=== PATIENT | male | born 1955 | race Caucasian/White ===

== ENCOUNTER 2021-02-24 08:00 | Outpatient (REF) | payer OTHER, SELFPAY ==
[2021-02-24 09:34] LABS: MANUAL DIFF FLAG NO
[2021-02-24 09:43] LABS: Basophils Percent Auto 0.5 % (0-2); Eosinophils Absolute Auto 0.1 X10*3/uL (0.0-0.4); Eosinophils Percent Auto 2.1 % (0-4); Hemoglobin 15.4 g/dl (14.0-18.0); Imm Gran Abs Auto 0.04 X10*3/uL (0.00-0.03); Imm Gran Pct Auto 0.6 % (0.0-0.4); Lymphocytes Absolute Auto 1.5 X10*3/uL (1.2-4.9); Lymphocytes Percent Auto 24.1 % (20-40); Mean Corpuscular HGB Conc 33.5 g/dl (31.0-36.0); Mean Corpuscular Hemoglobin 32.9 pg (27.0-33.0); Mean Corpuscular Volume 98.3 fL (80-98); Mean Platelet Volume 9.4 fL (9.4-12.4); Monocytes Absolute Auto 0.5 X10*3/uL (0.1-1.2); Monocytes Percent Auto 8.6 % (2-11); Neutrophils Percent Auto 64.1 % (45-73); Platelet Count 191 X10*3/uL (160-400); Red Blood Count 4.68 X10*6/uL (4.60-5.80); Red Cell Distribution Width 11.8 % (11.0-16.0); White Blood Count 6.2 X10*3/uL (4.8-10.8)
[2021-02-24 10:01] LABS: Alanine Aminotransferase 34 U/L (0-40); Albumin Level 4.2 g/dL (3.5-5.0); Alkaline Phosphatase 98 U/L (39-117); Anion Gap 11 (12-20); Aspartate Amino Transferase 26 U/L (5-37); Bilirubin Total 2.3 mg/dL (0.0-1.0); Blood Urea Nitrogen 15 mg/dL (9-16); Calcium 9.1 mg/dL (8.4-10.2); Carbon Dioxide 30 mmol/L (22-29); Chloride 103 mmol/L (96-108); Cholesterol 152 mg/dL; Estimated Glomerular Filt Rate > 60; Glucose Fasting 106 mg/dL (60-99); HDL Cholesterol 58 mg/dL; LDL Cholesterol Calculated 60 mg/dl; Potassium 4.4 mmol/L (3.3-5.1); Sodium 140 mmol/L (135-145); Total Protein 6.6 g/dL (6.5-8.0); Triglycerides 171 mg/dL
== END 2021-02-24 08:01 | disposition home or self-care (01) ==
LOC: HO.LAB 08:00
PROVIDERS: PCP Physician Assistant; Visit Provider Physician Assistant
DX: E78.1 Pure hyperglyceridemia (principal)
CPT/HCPCS: 36415; 80053; 80061; 85025

== ENCOUNTER 2021-09-29 09:27 | Outpatient (REF) | payer OTHER, SELFPAY ==
[2021-09-29 10:14] LABS: Hematocrit 44.2 % (42.0-52.0); Mean Corpuscular HGB Conc 33.9 g/dl (31.0-36.0); Mean Corpuscular Hemoglobin 33.3 pg (27.0-33.0); Mean Corpuscular Volume 98.2 fL (80.0-98.0); Mean Platelet Volume 9.2 fL (9.4-12.4); Platelet Count 171 X10*3/uL (160-400); Red Cell Distribution Width 11.4 % (11.0-16.0)
[2021-09-29 10:42] LABS: Alanine Aminotransferase 24 U/L (0-40); Albumin Level 3.9 g/dL (3.5-5.0); Alkaline Phosphatase 85 U/L (39-117); Anion Gap 10 (12-20); Aspartate Amino Transferase 21 U/L (5-37); Bilirubin Total 1.2 mg/dL (0.0-1.0); Blood Urea Nitrogen 12 mg/dL (9-16); Calcium 8.7 mg/dL (8.4-10.2); Carbon Dioxide 28 mmol/L (22-29); Chloride 105 mmol/L (96-108); Cholesterol 151 mg/dL; Estimated Glomerular Filt Rate > 60; Glucose Fasting 107 mg/dL (60-99); HDL Cholesterol 53 mg/dL; LDL Cholesterol Calculated 71 mg/dl; Potassium 4.1 mmol/L (3.3-5.1); Sodium 139 mmol/L (135-145); Triglycerides 136 mg/dL
[2021-09-29 11:05] LABS: Estimated Average Glucose 105 mg/dL; Hemoglobin A1c % 5.3 %
== END 2021-09-29 09:28 | disposition home or self-care (01) ==
LOC: HO.LAB 09:27
PROVIDERS: PCP Physician Assistant; Visit Provider Physician Assistant
DX: I10 Essential (primary) hypertension (principal); E78.1 Pure hyperglyceridemia; R73.09 Other abnormal glucose
CPT/HCPCS: 36415; 80053; 80061; 83036; 85027

== ENCOUNTER 2022-01-09 08:28 | Outpatient (REF) | payer OTHER, SELFPAY ==
[2022-01-09 09:54] LABS: Hematocrit 44.9 % (42.0-52.0); Mean Corpuscular HGB Conc 33.4 g/dl (31.0-36.0); Mean Corpuscular Volume 98.9 fL (80.0-98.0); Mean Platelet Volume 9.7 fL (9.4-12.4); Platelet Count 195 X10*3/uL (160-400); Red Blood Count 4.54 X10*6/uL (4.60-5.80); Red Cell Distribution Width 11.8 % (11.0-16.0); White Blood Count 6.7 X10*3/uL (4.8-10.8)
[2022-01-09 10:14] LABS: Creatinine Urine 101.36 mg/dL; Microalbum/Creatinine Ratio Ur 17.7 ug/mg cr
[2022-01-09 10:25] LABS: Alanine Aminotransferase 24 U/L (0-40); Albumin Level 3.9 g/dL (3.5-5.0); Alkaline Phosphatase 85 U/L (39-117); Anion Gap 10 (12-20); Aspartate Amino Transferase 25 U/L (5-37); Bilirubin Total 2.1 mg/dL (0.0-1.0); Blood Urea Nitrogen 11 mg/dL (9-16); Calcium 9.3 mg/dL (8.4-10.2); Carbon Dioxide 29 mmol/L (22-29); Chloride 102 mmol/L (96-108); Cholesterol 141 mg/dL; Estimated Average Glucose 103 mg/dL; Estimated Glomerular Filt Rate > 60; Glucose Fasting 102 mg/dL (60-99); HDL Cholesterol 58 mg/dL; Hemoglobin A1c % 5.2 %; LDL Cholesterol Calculated 53 mg/dl; Potassium 4.4 mmol/L (3.3-5.1); Sodium 137 mmol/L (135-145); Total Protein 6.3 g/dL (6.5-8.0); Triglycerides 153 mg/dL
[2022-01-09 10:36] LABS: TSH reflex Free T4 0.55 uIU/mL (0.32-4.0)
[2022-01-09 11:11] LABS: Prostate Specific Antigen Scr 0.19 ng/mL (<0.05-4.0)
== END 2022-01-09 08:29 | disposition home or self-care (01) ==
LOC: HO.LAB 08:28
PROVIDERS: PCP Physician Assistant; Visit Provider Physician Assistant
DX: I10 Essential (primary) hypertension (principal); E78.1 Pure hyperglyceridemia; R73.09 Other abnormal glucose; Z12.5 Encounter for screening for malignant neoplasm of prostate
CPT/HCPCS: 36415; 80053; 80061; 82043; 83036; 84153; 84443; 85027

== ENCOUNTER 2022-05-13 14:48 | Outpatient (REF) | payer OTHER, SELFPAY ==
--- NOTE | ~2022-05-13 | XR_ITS ---
EXAMINATION: XR LUMBOSACRAL SPINE CLINICAL INFORMATION: Sciatica. COMPARISON: None. TECHNIQUE: Three views of the lumbosacral spine. FINDINGS: There is maintained lumbar lordosis. There is minimal levoscoliosis. The vertebral heights and alignment are normal. There is loss of L4-L5 and L5-S1 disc heights with mild ventral spondylosis. The rest of the disc heights are normal. No acute fracture, dislocation or lytic process is seen. The SI joints are symmetrical. Incidental finding of a large left renal pelvic stone and multiple radiopaque gallstones are noted. XR/XR lumbar spine 2-3V IMPRESSION: Mild levoscoliosis with degenerative disc changes at L4-L5 and L5-S1 disc levels. There is moderate left L4-L5 and L5-S1 facet joint hypertrophy. Left renal pelvic stone and multiple radiopaque gallstones are noted.
== END 2022-05-13 14:49 | disposition home or self-care (01) ==
LOC: HO.XRAY 14:48
PROVIDERS: PCP Physician Assistant; Visit Provider Physician Assistant
DX: M54.30 Sciatica, unspecified side (principal)
CPT/HCPCS: 72100

== ENCOUNTER 2022-06-30 09:00 | Outpatient (RCR) | payer OTHER, SELFPAY ==
--- NOTE | 2022-06-08 12:25 | MHC.PT.EP ---
[facility] [place] Office [place] Office [place] Office [address] [phone] F: [phone] F: [phone] F: [phone] F: [phone] Physical Therapy Plan of Care Date of Evaluation: Date of Surgery: NA Diagnosis: THORACIC, THORACOLUMBAR AND LUMBOSACRAL Assessment: Pt IS 66 YO M REFERRED TO PT FROM [facility] WITH WITH THORACOLUMBAR AND LUMBOSACRAL INTERVETEBRAL DISC DISORDER. REPORTS HE STEPPED IN A HOLE IN HIS YARD AND IRRITATED HIS BACK (3RD WEEK OF APRIL). LB WAS SORE A FEW DAYS LATER. REPORTS OVERALL BETTER NOW. PRESENTS WITH DECREASED POSTURE, DECREASED TRUNK ROM, DECREASED HS FLEXIBILITY, DECREASED CORE STRENGTH. SHOULD BENEFIT FROM PT TO ADDRESS THESE ISSUES. Frequency and Duration: The patient will be seen 1X/WK X 6 WKS Short Term Goals: 1. INCREASED POSTURE AWARENESS AND AWARENESS BACK CARE 2. Pt TO PERF 2-3 TASKS WITH PROPER BODY MECH 3. MAINTENANCE OF LESS LEG SXS Fdc Goals: 1. I HEP WITH DC EX PLAN 2. DECREASED LBP AT LEAST 50% WITH ADLS 3. IMPROVED LEFI (64/80 SOC) Treatment Plan: Modalities to reduce pain, spasms and effusion. Manual therapy to restore motion and function. Therapeutic exercise to improve strength and flexibility. Neuromuscular re-education for posture and balance. Therapeutic activities to return to functional activities of daily living. Electronically signed by: RAJ DENG PT Please sign and return to therapist. Thank you for your referral.
--- NOTE | 2022-06-30 10:01 | MHC.PT.DC ---
[facility] [place] Office [place] Office [place] Office [address] [place] [address] [phone] F: [phone] F: [phone] F: [phone] F: [phone] Physical Therapy Discharge Report Diagnosis: THORACIC, THORACOLUMBAR AND LUMBOSACRAL Date of Surgery: NA Date of Evaluation: 06/08/22 Date of Discharge: 06/30/22 Treatments to Date: 3 Cancellations to Date: No Shows to Date: Discharge Status: Achieved Goals Improved Function Independent with HEP Patient Elected to Stop Discharge Summary: CUES FOR PROPER BODY MECH, ABLE TO DUPLICATE. HAS MET PT GOALS. REPORTS READY FOR DC Electronically signed by: RAJ DENG PT Please sign and return to therapist. Thank you for your referral.
== END 2022-10-05 12:44 | disposition home or self-care (01) ==
LOC: HO.PT 09:00
PROVIDERS: PCP Physician Assistant; Visit Provider Physician Assistant
DX: M51.9 Unspecified thoracic, thoracolumbar and lumbosacral intervertebral disc disorder (principal)
CPT/HCPCS: 97110; 97161; 97535

== ENCOUNTER 2022-07-27 10:08 | Outpatient (REF) | payer OTHER, SELFPAY ==
[2022-07-27 10:54] LABS: Hematocrit 46.1 % (42.0-52.0); Hemoglobin 15.5 g/dl (14.0-18.0); Mean Corpuscular HGB Conc 33.6 g/dl (31.0-36.0); Mean Corpuscular Volume 98.3 fL (80.0-98.0); Mean Platelet Volume 9.4 fL (9.4-12.4); Platelet Count 188 X10*3/uL (160-400); Red Blood Count 4.69 X10*6/uL (4.60-5.80); Red Cell Distribution Width 11.8 % (11.0-16.0); White Blood Count 6.6 X10*3/uL (4.8-10.8)
[2022-07-27 11:12] LABS: Estimated Average Glucose 100 mg/dL; Hemoglobin A1c % 5.1 %
[2022-07-27 11:35] LABS: Alanine Aminotransferase 22 U/L (0-40); Alkaline Phosphatase 87 U/L (39-117); Anion Gap 12 (12-20); Aspartate Amino Transferase 20 U/L (5-37); Bilirubin Total 1.7 mg/dL (0.0-1.0); Blood Urea Nitrogen 14 mg/dL (9-16); Calcium 9.1 mg/dL (8.4-10.2); Carbon Dioxide 30 mmol/L (22-29); Chloride 102 mmol/L (96-108); Cholesterol 148 mg/dL; Estimated Glomerular Filt Rate > 60; Glucose Fasting 105 mg/dL (60-99); HDL Cholesterol 53 mg/dL; LDL Cholesterol Calculated 60 mg/dl; Potassium 4.4 mmol/L (3.3-5.1); Sodium 140 mmol/L (135-145); Total Protein 6.3 g/dL (6.5-8.0); Triglycerides 179 mg/dL
[2022-07-27 11:42] LABS: TSH reflex Free T4 0.56 uIU/mL (0.32-4.0)
== END 2022-07-27 10:09 | disposition home or self-care (01) ==
LOC: HO.LAB 10:08
PROVIDERS: PCP Physician Assistant; Visit Provider Physician Assistant
DX: I10 Essential (primary) hypertension (principal); R73.09 Other abnormal glucose
CPT/HCPCS: 36415; 80053; 80061; 83036; 84443; 85027

== ENCOUNTER 2022-08-07 09:22 | Day surgery (SDC) | payer OTHER, SELFPAY ==
[2022-08-04 09:21] VITALS: BMI 26.8
--- NOTE | 2022-08-06 10:19 | P.CONAN_ITS ---
Documented by User: Renetta Dalton NP 08/06/22 10:26 HPI - Anesthesia Eval Consult details Narrative: 67yo M for Colonoscopy Cardiac cleared (S/P bioprosthetic AVR and valsalva root repair in 2019 at [facility]) [facility] Active Problems Active Problems: All Active Problems (Updated 08/03/22 @ 15:24 by Veronica Peters RN) Annual physical exam (Acute) Status post thoracic aortic aneurysm repair (Acute) COPD (chronic obstructive pulmonary disease) (Acute) ALIREZA (generalized anxiety disorder) (Acute) Hypertriglyceridemia (Acute) HTN (hypertension) (Acute) Impaired glucose metabolism (Acute) Tubular adenoma of colon (Acute) Squamous cell cancer of scalp and skin of neck (Acute) Sciatica (Acute) Facet hypertrophy of lumbar region (Acute) Thoracic aortic aneurysm (Acute) Past Medical History Medical History Anxiety Bicuspid aortic valve Depression Elevated cholesterol Skin cancer Family History Family History (Updated 01/27/22 @ 13:57 by Parker Strange PA-C) Father Medical history unknown Melanoma Mother Medical history unknown Surgical History Surgical History H/O colonoscopy Hx of wisdom tooth extraction Thoracic aortic aneurysm Social History Social History (Updated 01/27/22 @ 13:58 by Parker Strange PA-C) Alcohol intake: current Alcohol intake frequency: 0-2 drinks per day Alcohol type: beer Patient Tobacco Use Status: Former Tobacco user Quit Date: 2018 Second Hand Smoke Exposure: No Use of substances other than those prescribed or required for medical reasons: Yes Substance Use Frequency: Weekly Have you been hit, kicked, punched, or otherwise hurt by someone within the past year? If so, by whom?: No Are you DNR?: No Advance Directives: No Advance Directives Information Provided: Yes Recently lost weight without trying: No Eating poorly because of decreased appetite: No Nutrition Risks: No Nutritional Risk Current occupational status: retired Meds Allergies Allergy/AdvReac Type Severity Reaction Status Date / Time bee pollen [BEE STINGS] Allergy Severe HIVES Verified 01/27/22 13:50 Penicillins [PENICILLINS] Allergy Intermediate HIVES Verified 01/27/22 13:50 Home Medications Medication Instructions Recorded Confirmed Last Taken Type aspirin 81 mg tablet,delayed 81 mg PO DAILY 09/05/20 08/04/22 Unknown History release (Adult Low Dose Aspirin) bisoprolol fumarate 5 mg tablet 5 mg PO DAILY 09/05/20 08/04/22 Unknown History duloxetine 30 mg capsule,delayed 30 mg PO DAILY 09/05/20 01/27/22 Unknown History release duloxetine 60 mg capsule,delayed 120 mg PO DAILY 09/05/20 08/04/22 Unknown History release finasteride 5 mg tablet 5 mg PO DAILY 09/05/20 08/04/22 Unknown History lamotrigine 100 mg tablet 100 mg PO DAILY 09/05/20 08/04/22 Unknown History dextroamphetamine-amphetamine 20 40 mg PO DAILY 04/14/21 08/04/22 Unknown History mg tablet trazodone 100 mg tablet 100 mg PO BEDTIME 04/14/21 08/04/22 Unknown History simvastatin 40 mg tablet 40 mg PO QPM 01/27/22 08/04/22 Unknown History Exam Exam Date and Time: August 06, 2022 1019 Height,Weight and Vital Signs: Height 6 ft Weight 89.811 kg Pertinent Lab Results Pertinent Lab Results: Laboratory Tests 07/27/22 07/27/22 10:14 10:14 WBC 6.6 Hgb 15.5 Hct 46.1 Plt Count 188 Sodium 140 Potassium 4.4 Chloride 102 Carbon Dioxide 30 H BUN 14 Creatinine 0.79 Narrative Narrative: post-op ECHO per 06/2022 Cardiac note Nml EF Stable valve function and root size at 4.2cm Assessment and Plan Assessment Anesthesia Assessment: Chart Reviewed Documented by User: Pily Renner MD 08/07/22 10:17 [facility] Past Medical History Medical History Anxiety Bicuspid aortic valve Depression Elevated cholesterol Skin cancer Family History Family History (Updated 01/27/22 @ 13:57 by Parker Strange PA-C) Father Medical history unknown Melanoma Mother Medical history unknown Family history of problems with anesthesia: No Surgical History Surgical History H/O colonoscopy Hx of wisdom tooth extraction Thoracic aortic aneurysm History of Problems with Anesthesia: No Social History Social History (Updated 01/27/22 @ 13:58 by Parker Strange PA-C) Alcohol intake: current Alcohol intake frequency: 0-2 drinks per day Alcohol type: beer Patient Tobacco Use Status: Former Tobacco user Quit Date: 2018 Second Hand Smoke Exposure: No Use of substances other than those prescribed or required for medical reasons: Yes Substance Use Frequency: Weekly Have you been hit, kicked, punched, or otherwise hurt by someone within the past year? If so, by whom?: No Are you DNR?: No Advance Directives: No Advance Directives Information Provided: Yes Recently lost weight without trying: No Eating poorly because of decreased appetite: No Nutrition Risks: No Nutritional Risk Current occupational status: retired [employer] Allergies Allergy/AdvReac Type Severity Reaction Status Date / Time bee pollen [BEE STINGS] Allergy Severe HIVES Verified 01/27/22 13:50 Penicillins [PENICILLINS] Allergy Intermediate HIVES Verified 01/27/22 13:50 Home Medications Medication Instructions Recorded Confirmed Last Taken Type aspirin 81 mg tablet,delayed 81 mg PO DAILY 09/05/20 08/04/22 Unknown History release (Adult Low Dose Aspirin) bisoprolol fumarate 5 mg tablet 5 mg PO DAILY 09/05/20 08/04/22 Unknown History duloxetine 30 mg capsule,delayed 30 mg PO DAILY 09/05/20 01/27/22 Unknown History release duloxetine 60 mg capsule,delayed 120 mg PO DAILY 09/05/20 08/04/22 Unknown History release finasteride 5 mg tablet 5 mg PO DAILY 09/05/20 08/04/22 Unknown History lamotrigine 100 mg tablet 100 mg PO DAILY 09/05/20 08/04/22 Unknown History dextroamphetamine-amphetamine 20 40 mg PO DAILY 04/14/21 08/04/22 Unknown History mg tablet trazodone 100 mg tablet 100 mg PO BEDTIME 04/14/21 08/04/22 Unknown History simvastatin 40 mg tablet 40 mg PO QPM 01/27/22 08/04/22 Unknown History Exam Airway Mallampati Class: III TM Dist: >3cm Neck ROM: Full Assessment and Plan Assessment Anesthesia Assessment: Anesthesia Plan Discussed Final Anesthetic Review Family History of Problems with Anesthesia: No History of Problems with Anesthesia: No ASA Class: III Final Preanesthetic Review: No Changes in Pt Med Stat, Meds/Allgs Chart Reviewed, Consent Obtained/Reviewed and Anes Risks/Benef Reviewed Patient Risk: Intermediate Procedure Risk: Low Anesthetic Plan Anesthetic Plan: MAC: Disposition: Standard PACU
[2022-08-07 10:00] VITALS: BP 112/79; PULSE 92; RESP 18; TEMP 36.2; O2SAT 96
[2022-08-07] MEDS: Lactated Ringers 1,000 ML 100 ML IVCONT (10:06)
[2022-08-07 11:25] VITALS: BP 108/71; PULSE 62; RESP 22; TEMP 36.3; O2SAT 99
--- NOTE | 2022-08-07 11:29 | P.BOP_ITS ---
Brief Operative Note Date of Service: 08/07/22 Pre-op diagnosis: Screening Post-op diagnosis: other (Cecal polyp) Procedure: Colonoscopy to the cecum and TI with hot snare polypectomy of cecal polyp with placement of 3 Resolution clips Surgeon: Rocael Smith Anesthesia: MAC Was an Foot Miter Operator used for this Procedure?: No Estimated blood loss (mL): 2.0 Pathology: other (A. Cecal polyp) Condition: stable Disposition: PACU
[2022-08-07 11:40] VITALS: BP 115/74; PULSE 65; RESP 20; TEMP 36.3; O2SAT 97
--- NOTE | 2022-08-07 13:12 | OP_ITS ---
SURGEON: Rocael Smith MD INDICATIONS: The patient presents for followup of personal history of tubular adenoma of the colon, family history of colon cancer, and colorectal cancer screening. Full consent has been obtained from him for this, including risks of bleeding and perforation. PREOPERATIVE DIAGNOSIS: Colorectal cancer screening, personal history of tubular adenoma of the colon, family history colon cancer. POSTOPERATIVE DIAGNOSIS: Colorectal cancer screening, personal history of tubular adenoma of the colon, family history colon cancer, cecal polyp, diverticulosis, and internal hemorrhoids. PROCEDURE PERFORMED: Colonoscopy to the cecum and terminal ileum with hot snare polypectomy and placement of 3 resolution clips. ESTIMATED BLOOD LOSS: COMPLICATIONS: ANESTHESIA: Monitored anesthesia care. ASSISTANTS: SPECIMENS: DESCRIPTION OF PROCEDURE: The patient was placed in the left lateral decubitus position. The digital rectal exam revealed no abnormalities. The [employer] video pediatric colonoscope was entered into the rectum and advanced easily to the cecum. Once in the cecum, I did identify cecal pouch with appendiceal orifice and a normal-appearing ileocecal valve. The terminal ileum was cannulated and appeared normal. The scope was withdrawn back in the colon. The entire cecum was well visualized. In the area adjacent to the appendiceal orifice was an approximately 12 mm polypoid lesion, which appeared to be grossly adenomatous. This was removed in piecemeal fashion with all pieces recovered either by suction or by retrieval with the retrieval net and brought out of the patient. The scope was advanced back to the polypectomy site in the cecum. This appeared clean, without any sign of residual polyp nor bleeding. I did place 3 clips on the polypectomy site given that he has to go back on aspirin. The scope was slowly withdrawn assessing all mucosal surfaces carefully. Preparation was excellent. I did not visualize any other polyps, colitis, nor angiodysplasia. There was a mild amount of sigmoid diverticulosis. In the rectum, scope was retroflexed visualizing internal hemorrhoids, but no other pathology. The rectal mucosa appeared normal. Scope was straightened and withdrawn from the patient. He tolerated the procedure well and was returned to the recovery area in stable condition. IMPRESSION: 1. Cecal polyp. 2. Diverticulosis. 3. Internal hemorrhoids. PLAN: The results of the pathology will be checked. I would recommend a repeat colonoscopy in 2-3 years. He was advised not to use any NSAIDs for 1 week. He was advised to resume his aspirin in 72 hours. MD JELLY Harvey/RERE / [id number]
== END 2022-08-07 12:25 | disposition home or self-care (01) ==
PROVIDERS: PCP Physician Assistant; Visit Provider Internal Medicine
PROC: 0DJD8ZZ Inspection of Lower Intestinal Tract, Via Natural or Artificial Opening Endoscopic (ICD-10-PCS; CPT 45378; principal; 2022-08-07 10:30)
DX: Z12.11 Encounter for screening for malignant neoplasm of colon (principal); Z80.0 Family history of malignant neoplasm of digestive organs; Z86.010 Personal history of colon polyps; D12.0 Benign neoplasm of cecum; K57.30 Diverticulosis of large intestine without perforation or abscess without bleeding; K64.8 Other hemorrhoids; I10 Essential (primary) hypertension; I71.2 Thoracic aortic aneurysm, without rupture; Z95.2 Presence of prosthetic heart valve; E78.2 Mixed hyperlipidemia; N40.0 Benign prostatic hyperplasia without lower urinary tract symptoms; Z82.49 Family history of ischemic heart disease and other diseases of the circulatory system; Z79.82 Long term (current) use of aspirin; Z79.899 Other long term (current) drug therapy; Z88.0 Allergy status to penicillin; Z85.828 Personal history of other malignant neoplasm of skin; Z87.891 Personal history of nicotine dependence
CPT/HCPCS: 45385; 88305

== ENCOUNTER 2023-02-23 07:44 | Outpatient (REF) | payer OTHER, SELFPAY ==
[2023-02-23 08:18] LABS: Hematocrit 46.7 % (42.0-52.0); Hemoglobin 16.1 g/dl (14.0-18.0); Mean Corpuscular HGB Conc 34.5 g/dl (31.0-36.0); Mean Corpuscular Hemoglobin 33.8 pg (27.0-33.0); Mean Corpuscular Volume 98.1 fL (80.0-98.0); Mean Platelet Volume 9.4 fL (9.4-12.4); Platelet Count 182 X10*3/uL (160-400); Red Blood Count 4.76 X10*6/uL (4.60-5.80); Red Cell Distribution Width 11.4 % (11.0-16.0); White Blood Count 6.7 X10*3/uL (4.8-10.8)
[2023-02-23 08:58] LABS: Alanine Aminotransferase 28 U/L (0-40); Alkaline Phosphatase 90 U/L (39-117); Anion Gap 11 (12-20); Aspartate Amino Transferase 26 U/L (5-37); Bilirubin Total 2.5 mg/dL (0.0-1.0); Blood Urea Nitrogen 11 mg/dL (9-16); Calcium 8.9 mg/dL (8.4-10.2); Carbon Dioxide 29 mmol/L (22-29); Chloride 104 mmol/L (96-108); Cholesterol 157 mg/dL; Estimated Glomerular Filt Rate > 60; Glucose Fasting 100 mg/dL (60-99); HDL Cholesterol 49 mg/dL; LDL Cholesterol Calculated 67 mg/dl; Potassium 4.4 mmol/L (3.3-5.1); Sodium 140 mmol/L (135-145); Total Protein 6.1 g/dL (6.5-8.0); Triglycerides 205 mg/dL
[2023-02-23 09:19] LABS: Creatinine Urine 105.32 mg/dL; Microalbum/Creatinine Ratio Ur 22.7 ug/mg cr
[2023-02-23 09:20] LABS: Prostate Specific Antigen Scr 0.23 ng/mL (<0.05-4.0); TSH reflex Free T4 0.86 uIU/mL (0.32-4.0)
== END 2023-02-23 07:45 | disposition home or self-care (01) ==
LOC: HO.LAB 07:44
PROVIDERS: PCP Physician Assistant; Visit Provider Physician Assistant
DX: Z12.5 Encounter for screening for malignant neoplasm of prostate (principal); I10 Essential (primary) hypertension; E78.1 Pure hyperglyceridemia
CPT/HCPCS: 36415; 80053; 80061; 82043; 84153; 84443; 85027

== ENCOUNTER 2023-08-21 09:03 | Outpatient (REF) | payer OTHER, SELFPAY ==
[2023-08-21 10:05] LABS: Alanine Aminotransferase 22 U/L (0-40); Albumin Level 4.2 g/dL (3.5-5.0); Alkaline Phosphatase 90 U/L (39-117); Anion Gap 14 (12-20); Aspartate Amino Transferase 22 U/L (5-37); Bilirubin Total 1.6 mg/dL (0.0-1.0); Blood Urea Nitrogen 11 mg/dL (9-16); Calcium 9.7 mg/dL (8.4-10.2); Carbon Dioxide 25 mmol/L (22-29); Chloride 105 mmol/L (96-108); Cholesterol 149 mg/dL (<200); Estimated Glomerular Filt Rate > 60; Glucose Fasting 101 mg/dL (60-99); HDL Cholesterol 55 mg/dL (>40); LDL Cholesterol Calculated 58 mg/dL (<100); Potassium 4.1 mmol/L (3.3-5.1); Sodium 140 mmol/L (135-145); Total Protein 7.1 g/dL (6.5-8.0); Triglycerides 184 mg/dL (<150)
[2023-08-21 10:11] LABS: Hematocrit 47.3 % (42.0-52.0); Hemoglobin 16.2 g/dl (14.0-18.0); Mean Corpuscular HGB Conc 34.2 g/dl (31.0-36.0); Mean Corpuscular Hemoglobin 33.1 pg (27.0-33.0); Mean Corpuscular Volume 96.5 fL (80.0-98.0); Mean Platelet Volume 9.7 fL (9.4-12.4); Platelet Count 190 X10*3/uL (160-400); Red Cell Distribution Width 11.7 % (11.0-16.0); White Blood Count 7.5 X10*3/uL (4.8-10.8)
== END 2023-08-21 09:04 | disposition home or self-care (01) ==
LOC: HO.LAB 09:03
PROVIDERS: PCP Physician Assistant; Visit Provider Physician Assistant
DX: I10 Essential (primary) hypertension (principal)
CPT/HCPCS: 36415; 80053; 80061; 85027

== ENCOUNTER 2023-08-26 08:58 | Outpatient (AMB) | payer OTHER, SELFPAY ==
[2023-08-26 09:15] VITALS: BP 106/68; PULSE 85; O2SAT 97; BMI 27.1
--- NOTE | 2023-08-26 09:15 | A.OFFPC_ITS ---
Vital Signs 08/26/23 09:15 Height 6 ft Weight 200 lb BMI 27.1 BP 106/68 Blood Pressure Location Lt brachial Position Sitting Pulse 85 Pulse Source Pulse Oximeter Pulse Oximetry (%) 97 Oxygen Delivery Method Room Air Intake Visit Reasons: pe Intake Note: Patient is here today for a physical. Foster Parent Required: No Accompanied by: Self / Same As Patient Allergies bee pollen [BEE STINGS] Allergy (Severe, Verified 08/26/23 09:43) HIVES Penicillins [PENICILLINS] Allergy (Intermediate, Verified 08/26/23 09:43) HIVES Medication List - Last Reconciled 08/26/23 by Parker Strange PA-C aspirin (Adult Low Dose Aspirin) 81 mg PO DAILY bisoprolol fumarate 5 mg PO DAILY duloxetine 120 mg PO DAILY finasteride 5 mg PO DAILY fluticasone propionate 50 mcg/actuation (Flonase Allergy Relief) 1 spray intranasal BID 30 days ibuprofen 800 mg PO Q8H 14 days lamotrigine 100 mg PO DAILY simvastatin 40 mg PO QPM trazodone 100 mg PO BEDTIME Tobacco use date assessed: 02/24/23 Fall risk assessment: No Falls in past year Last assessed Fall Risk: 08/26/23 Dental Screening Dental Screen Date: 08/26/23 Did you have a dental visit in the last 12 months?: Yes Did you have a dental problem in the last 6 months where you did not have access to dental care?: No Was dental information given to patient?: Patient has dentist HPI pe HPI Details Anup is a 68-year-old male here today for routine annual physical ? Pmhx significant for ALIREZA, BPH, HLD, Thoracic Aneurysm, former Smoker, ADHD, MDD. Skin cancer: Continues to follow Dermatology and is getting biopsies and skin removed from his scalp and nose.- of note did have squamous cell carcinoma ? BPH: Is followed by URology and doing well with therapies, no reports of urinary symptoms. Recent PSA- 0.23. ? .. ? Former Smoker: stopped cigarette smoking over the last 4 years. ? .. ? ALIREZA:, ? IS followed by a therapist and provider whom is prescribing his MH meds .. ADHD:? Again currently weaning off of Adderall for his ADHD as he does not feel he needs this medication any more, has a new psychiatrist who is making medication adjustments for him. ? .. ? Thoracic Aneurysm:? Patient is status post thoracic aneurysm repair. Is followed by Dr Naranjo ? Patient denies any palpitations or cardiac related chest pain. Colonoscopy: Done 2021 Dr Smith - dee dee found 1 year, has upcoming appointment in October with GI Vaccines: Up-to-date with tetanus vaccine, shingles vaccine, UTD with Tdap , COVID vaccine PFSH Medical History Skin cancer Anxiety Depression Bicuspid aortic valve Elevated cholesterol Surgical History Hx of wisdom tooth extraction H/O colonoscopy Thoracic aortic aneurysm Family History Father Medical history unknown Melanoma Mother Medical history unknown Social History Housing: House Alcohol intake: current Alcohol intake frequency: 0-2 drinks per day Alcohol type: beer Patient Tobacco Use Status: Former Tobacco user Quit Date: 2018 e-Cigarette/Vaping Use: Never Used Second Hand Smoke Exposure: No service: No Current occupational status: retired Cognitive needs: No Hearing needs: No Vision needs: Yes Questionnaire Thrive Questionnaire Date Thrive assessed: 01/27/22 AUDIT C Alcohol Use Questionnaire (AUDIT-C) 1. How often do you have a drink containing alcohol?: 2-3 times a week 2. How many drinks containing alcohol do you have on a typical day when you are drinking?: 1 or 2 3. How often do you have six or more drinks on one occasion?: Never Total Score: 3 ALIREZA-7 AMB Questionnaire ALIREZA-7 Date ALIREZA - 7 assessed: 08/26/23 (Pt refused ) Source: Developed by Drs. Rocael Ribera, Aida Alex, Terrence Luque and colleagues, with an educational nikolay from [employer]. Review of Systems Const Denies body aches, Denies chills, Denies excessive sweating, Denies fatigue, Denies fever(s) and Denies headache(s) Eyes Denies blurry vision ENT Denies dysphagia, Denies vertigo, Denies dizziness, Denies headache(s), Denies hearing loss and Denies tinnitus Card Denies chest pain, Denies chest pain with activity, Denies syncope, Denies irregular heart rhythm and Denies dyspnea Resp Denies chest congestion, Denies cough, Denies hemoptysis, Denies dyspnea and Denies wheezing GI Denies abdominal pain, Denies melena, Denies hematochezia, Denies coffee ground emesis, Denies dysphagia, Denies diarrhea, Denies nausea and Denies vomiting Denies difficulty urinating, Denies dysuria, Denies urinary frequency, Denies urinary hesitancy and Denies urinary urgency Musc Denies arthralgias, Denies limited range of motion, Denies muscle cramps and Denies muscle weakness Skin/Breast Denies rash and Denies skin ulcer Neuro Denies Abnormal speech present, Denies confusion, Denies vertigo, Denies dizziness, Denies syncope, Denies headache(s), Denies memory loss and Denies seizure-like activity Psych Denies anxiety, Denies confusion, Denies depression, Denies memory loss, Denies panic attacks and Denies paranoia Endo Denies excessive sweating, Denies fatigue, Denies flushing, Denies polydipsia and Denies polyuria Aller/Immun Denies wheezing Physical exam (Primary Care) Vital Signs: Last Vital Signs Pulse 85 08/26/23 09:15 BP 106/68 08/26/23 09:15 Pulse Ox 97 08/26/23 09:15 Oxygen Delivery Method Room Air 08/26/23 09:15 BMI result Body Mass Index 27.1 Tobacco/Smoking Status: Tobacco use Status Tobacco use date assessed 02/24/23 08/26/23 09:16 Patient Tobacco Use Status Former Tobacco user 08/26/23 09:16 e-Cigarette/Vaping Use Never Used 08/26/23 09:23 Thrive Assessment: Date of Thrive Assessment Date Thrive assessed 01/27/22 08/26/23 09:16 Const General: cooperative, comfortable, no acute distress, alert and awake; No confusion Orientation/consciousness: oriented to person, oriented to place, patient oriented x3 and No confusion HENMT Head: Yes normocephalic Ears: external ears normal and TM's normal bilaterally Face and sinus: No sinus tenderness Mouth: Normal oral and palatal mucosa present and tongue normal Teeth and gingiva: dentition normal and gingiva normal Throat: Yes posterior oropharynx normal, Yes tonsils normal and Yes uvula midline Eyes Conjunctivae: conjunctivae normal Sclerae: sclerae normal Pupils: Equal, round and reactive pupils present EOM: EOMs intact bilaterally Direct Ophthalmoscopy: No no photophobia Neck Neck: Yes no lymphadenopathy, No tender and Yes no JVD Thyroid: Thyroid normal Carotids: no bruits Chest Chest palpation & inspection: no tenderness Resp Effort & Inspection: normal respiratory effort, no audible wheezes, not labored and no stridor Auscultation: no crackles, no rales, no rhonchi and no wheezes Cardio Jugular venous distension: no JVD Rate: regular rate, not bradycardic and not tachycardic Rhythm: regular rhythm Bruits: no carotid bruits Peripheral pulses: Peripheral pulses 2+ throughout GI Inspection: Yes normal to inspection, No abdominal wall ecchymosis and No visible herniation Palpation (GI): Soft to palpation, nontender, no guarding, not rigid and No hepatosplenomegaly present Auscultation: normoactive bowel sounds General: Yes no CVA tenderness Back/Spine/Pelvis Back: no CVA tenderness and No back tenderness Cervical Spine: cervical ROM normal Thoracic/Lumbar Spine: thoracic and lumbar spine normal to inspection, straight leg raise negative bilaterally, No thoraco-lumbar ROM limited and No lumbar spinal tenderness Skin Lesions: no lesions Rashes: no rashes Wounds: no wounds Neuro General: oriented to person, oriented to place, patient oriented x3, CN's II-XI intact bilaterally and No confusion Cranial nerves: Yes Equal, round and reactive pupils present and Yes Normal accommodation reflex present Cognition (Neuro): normal cognition Speech: No Abnormal speech present Gait exam (Neuro): Normal gait present Motor exam (neuro): 5/5 motor strength present throughout Extrem Right upper extremity: full ROM; no cyanosis Left upper extremity: full ROM; no cyanosis Right lower extremity: no edema Left lower extremity: no edema Psych Appearance: grossly normal Mental Status: mental status grossly normal Affect: normal affect Attitude: cooperative Thought process: Normal thought process present Office Procedures Flu Questionnaire Does the patient have a severe egg allergy?: No Does the patient have severe life threatening allergies?: No Does the patient have a fever or illness today?: No Has the patient ever had Guillain-Smithfield Syndrome?: No Has the patient ever had any past reaction to a flu shot?: No Immunizations flu vacc [id number] 6mos up(PF) 60 mcg(15 mcgx4)/0.5 mL IM syringe Performing Provider: Parker Strange PA-C [facility] Administered by: MAGALY Haddad on 08/26/23 09:27 Dose Route Admin Location Dispensed Lot Number Expiration Date NDC Extrusion Line Operator 0.5 mL IM Left Deltoid 0.5 mL [id number] 05/07/24 05377-525-42 [employer] VIS Given Date VIS Provided VIS Publication Date 08/26/23 Single Vaccine 21 Eligibility Eligibility Date Funding Source Not [facility] Eligible 08/26/23 Private Assessment and Plan Assessment & Plan (1) Annual physical exam: Code(s): Z00.00 - Encounter for general adult medical examination without abnormal findings (2) HTN (hypertension): Code(s): I10 - Essential (primary) hypertension Qualifiers: Hypertension type: essential hypertension Qualified Code(s): I10 - Essential (primary) hypertension Plan: Patient's blood pressure today in office acceptable. Will continue current dose of beta-emy. Goal blood pressure to be below 140/90 (3) Thoracic aortic aneurysm: Comment: 11/2019 & aortic valve replacement Code(s): I71.2 - Thoracic aortic aneurysm, without rupture Qualifiers: Presence of rupture: without rupture Qualified Code(s): I71.2 - Thoracic aortic aneurysm, without rupture Plan: Continues to follow cardiology and thoracic surgeon. Surveillance imaging of his thoracic aorta have been acceptable. (4) COPD (chronic obstructive pulmonary disease): Code(s): J44.9 - Chronic obstructive pulmonary disease, unspecified Qualifiers: COPD type: emphysema Emphysema type: unspecified Qualified Code(s): J43.9 - Emphysema, unspecified Plan: Patient reports COPD has been fairly stable, has not had any recent exacerbations. He reports he has hindered by his seasonal allergies. (5) Impaired glucose metabolism: Code(s): R73.09 - Other abnormal glucose Plan: Patient's most recent fasting blood sugar improved now slightly above normal range. Will continue to work on lifestyle modifications are reducing high carbohydrate foods. (6) Hypertriglyceridemia: Code(s): E78.1 - Pure hyperglyceridemia Plan: Patient continues on statin therapy with good effect on his fasting lipids. Most recent total cholesterol and LDL have been stable. Does have slight mild hypertriglyceridemia which he continues to work on lifestyle modifications. (7) ALIREZA (generalized anxiety disorder): Code(s): F41.1 - Generalized anxiety disorder Plan: Patient continues to follow therapist and a psychiatrist to manage his mental health medications. Has completely weaned off of Adderall. Orders: Orders Influenza [id number] Immunization Today Z23 - Encounter for immunization Lipid Panel 6 Months E78.1 - Pure hyperglyceridemia Complete Blood Count no Diff 6 Months I10 - Essential (primary) hypertension Microalbumin, Random (w Creat) 6 Months I10 - Essential (primary) hypertension Hemoglobin A1c 6 Months R73.09 - Other abnormal glucose Comprehensive Ashley. Panel Fast 6 Months R73.09 - Other abnormal glucose Coding Level of Care Code Est Pt Prev Care >65y([id number]) Diagnoses Annual physical exam Z00.00 Essential hypertension I10 Hypertension type: essential hypertension Thoracic aortic aneurysm without rupture I71.2 Presence of rupture: without rupture Pulmonary emphysema, unspecified emphysema type J43.9 COPD type: emphysema Emphysema type: unspecified Impaired glucose metabolism R73.09 Hypertriglyceridemia E78.1 ALIREZA (generalized anxiety disorder) F41.1
== END 2023-08-26 09:58 | disposition home or self-care (01) ==
PROVIDERS: Visit Provider Physician Assistant
DX: Z00.00 Encounter for general adult medical examination without abnormal findings (principal); I71.20 Thoracic aortic aneurysm, without rupture, unspecified; J43.9 Emphysema, unspecified; Z23 Encounter for immunization; I10 Essential (primary) hypertension; R73.09 Other abnormal glucose; E78.1 Pure hyperglyceridemia; F41.1 Generalized anxiety disorder
CPT/HCPCS: 90471; 90686; 99397

== ENCOUNTER 2024-01-05 07:02 | Day surgery (SDC) | payer MEDICARE, SELFPAY ==
--- NOTE | 2024-01-04 08:21 | HO.ANESPROP2 ---
Documented by User: Renetta Dalton NP 01/04/24 09:33 HPI - Anesthesia Eval Consult details Narrative: 68yo M for Colonoscopy Follows [facility]. Last office visit 06/2023. Stable for 6 month f/u. S/P bioprosthetic AVR and valsalva root repair in 2019 at [facility] Active Problems Active Problems: All Active Problems (Updated 08/03/22 @ 15:24 by Veronica Peters RN) Allergic rhinitis (Acute) Annual physical exam (Acute) Status post thoracic aortic aneurysm repair (Acute) COPD (chronic obstructive pulmonary disease) (Acute) ALIREZA (generalized anxiety disorder) (Acute) Hypertriglyceridemia (Acute) HTN (hypertension) (Acute) Impaired glucose metabolism (Acute) Tubular adenoma of colon (Acute) Squamous cell cancer of scalp and skin of neck (Acute) Sciatica (Acute) Facet hypertrophy of lumbar region (Acute) Thoracic aortic aneurysm (Acute) Past Medical History Medical History Skin cancer Anxiety Depression Bicuspid aortic valve Elevated cholesterol Family History Family History Father Medical history unknown Melanoma Mother Medical history unknown Family history of problems with anesthesia: No Surgical History Surgical History Hx of wisdom tooth extraction H/O colonoscopy Thoracic aortic aneurysm History of Problems with Anesthesia: No Social History Social History Housing: House Alcohol intake: current Alcohol intake frequency: 0-2 drinks per day Alcohol type: beer Patient Tobacco Use Status: Former Tobacco user Quit Date: 2018 e-Cigarette/Vaping Use: Never Used Second Hand Smoke Exposure: No Use of substances other than those prescribed or required for medical reasons: Yes Are you DNR?: No Advance Directives: No Advance Directives Information Provided: Yes service: No Current occupational status: retired Cognitive needs: No Hearing needs: No Vision needs: Yes Meds Allergies Allergy/AdvReac Type Severity Reaction Status Date / Time bee pollen [BEE STINGS] Allergy Severe HIVES Verified 01/05/24 07:12 Penicillins [PENICILLINS] Allergy Intermediate HIVES Verified 01/05/24 07:12 Home Medications Medication Instructions Recorded Confirmed Last Taken Type aspirin 81 mg tablet,delayed 81 mg PO DAILY 09/05/20 08/26/23 Unknown History release (Adult Low Dose Aspirin) bisoprolol fumarate 5 mg tablet 5 mg PO DAILY 09/05/20 08/26/23 Unknown History duloxetine 60 mg capsule,delayed 120 mg PO DAILY 09/05/20 08/26/23 Unknown History release finasteride 5 mg tablet 5 mg PO DAILY 09/05/20 08/26/23 Unknown History lamotrigine 100 mg tablet 100 mg PO DAILY 09/05/20 08/26/23 Unknown History trazodone 100 mg tablet 100 mg PO BEDTIME 04/14/21 08/26/23 Unknown History simvastatin 40 mg tablet 40 mg PO QPM 01/27/22 08/26/23 Unknown History Exam Pertinent Lab Results Pertinent Lab Results: Laboratory Tests 08/21/23 09:29 WBC 7.5 Hgb 16.2 Hct 47.3 Plt Count 190 Sodium 140 Potassium 4.1 Chloride 105 Carbon Dioxide 25 BUN 11 Creatinine 0.77 Narrative Narrative: ECHO 12/2022 1. LV size is nml 2. Mod concen LVH 3. Overall LV systolic function EF 60-65% 4. Diastolic filling pattern is nml 5. Paradoxical septal motion c/w post-op status 6. LA mildly dilated 7. RV systolic function is nml 8. Trace aortic regurg 9. Nmly function aortic bioprosthetic valve, #27 bioprosthetic Magna with Bentall root graft 10. Aortic root is dilated measuring 4.2cm No real change c/w 2020 Assessment and Plan Assessment Anesthesia Assessment: Chart Reviewed Final Anesthetic Review Family History of Problems with Anesthesia: No History of Problems with Anesthesia: No Documented by User: Guy Heaton MD 01/05/24 09:02 [facility] Past Medical History Medical History Skin cancer Anxiety Depression Bicuspid aortic valve Elevated cholesterol Functional capacity: independent ambulation Family History Family History Father Medical history unknown Melanoma Mother Medical history unknown Surgical History Surgical History Hx of wisdom tooth extraction H/O colonoscopy Thoracic aortic aneurysm Social History Social History Housing: House Alcohol intake: current Alcohol intake frequency: 0-2 drinks per day Alcohol type: beer Patient Tobacco Use Status: Former Tobacco user Quit Date: 2018 e-Cigarette/Vaping Use: Never Used Second Hand Smoke Exposure: No Use of substances other than those prescribed or required for medical reasons: Yes Are you DNR?: No Advance Directives: No Advance Directives Information Provided: Yes service: No Current occupational status: retired Cognitive needs: No Hearing needs: No Vision needs: Yes Meds Allergies Allergy/AdvReac Type Severity Reaction Status Date / Time bee pollen [BEE STINGS] Allergy Severe HIVES Verified 01/05/24 07:12 Penicillins [PENICILLINS] Allergy Intermediate HIVES Verified 01/05/24 07:12 Home Medications Medication Instructions Recorded Confirmed Last Taken Type aspirin 81 mg tablet,delayed 81 mg PO DAILY 09/05/20 08/26/23 Unknown History release (Adult Low Dose Aspirin) bisoprolol fumarate 5 mg tablet 5 mg PO DAILY 09/05/20 08/26/23 Unknown History duloxetine 60 mg capsule,delayed 120 mg PO DAILY 09/05/20 08/26/23 Unknown History release finasteride 5 mg tablet 5 mg PO DAILY 09/05/20 08/26/23 Unknown History lamotrigine 100 mg tablet 100 mg PO DAILY 09/05/20 08/26/23 Unknown History trazodone 100 mg tablet 100 mg PO BEDTIME 04/14/21 08/26/23 Unknown History simvastatin 40 mg tablet 40 mg PO QPM 01/27/22 08/26/23 Unknown History Exam Airway Mallampati Class: II TM Dist: <=3cm Neck ROM: Full Loose/Missing/Broken Teeth: No Heart: ok Lungs: ok Assessment and Plan Assessment Anesthesia Assessment: Anesthesia Plan Discussed Final Anesthetic Review NPO: Yes ASA Class: III Final Preanesthetic Review: No Changes in Pt Med Stat, Meds/Allgs Chart Reviewed, Consent Obtained/Reviewed and Anes Risks/Benef Reviewed Patient Risk: Intermediate Procedure Risk: Low Anesthetic Plan Anesthetic Plan: MAC: and Agree w/ Assess. and Plan Disposition: Standard PACU
[2024-01-05 07:14] VITALS: BMI 26.6
[2024-01-05 08:20] VITALS: BP 115/73; PULSE 53; RESP 16; TEMP 37.2; O2SAT 93
[2024-01-05 09:37] VITALS: BP 102/65; PULSE 45; RESP 18; TEMP 36.6; O2SAT 98
--- NOTE | 2024-01-05 09:41 | PM.OP ---
Brief Operative Note Date of Service: 01/05/24 Pre-op diagnosis: Screening Post-op diagnosis: other (Polyps) Procedure: Colonoscopy to the cecum and TI with bx/removal of polyp, and cold snare polypectomy at 20cm Surgeon: Rocael Smith MD Anesthesia: MAC Was an Building Maintenance Custodian used for this Procedure?: No Estimated blood loss (mL): 2.0 Pathology: other (A. Cecal polyp B. Polyp at 20cm) Condition: stable Disposition: PACU
[2024-01-05 09:52] VITALS: BP 124/65; PULSE 58; RESP 18; TEMP 36.4; O2SAT 97
--- NOTE | 2024-01-05 11:06 | OP_ITS ---
DATE OF SERVICE: 01/05/2024 SURGEON: Rocael Smith MD INDICATIONS: The patient presents for followup of personal history of colon polyps and colorectal cancer screening. Full consent was obtained from him for this, including risks of bleeding and perforation. PREOPERATIVE DIAGNOSIS: POSTOPERATIVE DIAGNOSIS: PROCEDURE PERFORMED: ESTIMATED BLOOD LOSS: COMPLICATIONS: ANESTHESIA: Monitored anesthesia care. ASSISTANTS: SPECIMENS: PREOPERATIVE DIAGNOSES: Colorectal cancer screening and personal history of colon polyps. POSTOPERATIVE DIAGNOSES: Colorectal cancer screening and personal history of colon polyps, colon polyps, diverticulosis, and internal hemorrhoids. PROCEDURES PERFORMED: Colonoscopy to cecum and terminal ileum with biopsy and removal of cecal polyp, and cold snare polypectomy of polyp at 20 cm. PROCEDURE IN DETAIL: The patient was placed in the left lateral decubitus position. The digital rectal exam revealed a tight anal sphincter, but no other abnormalities. The [employer] video pediatric colonoscope was then entered into the rectum and advanced easily to the cecum. Once in the cecum, I did identify a cecal pouch with appendiceal orifice and a normal-appearing ileocecal valve. The terminal ileum was cannulated and appeared normal. The scope was withdrawn back in the colon. The entire cecum and ileocecal valve were well visualized. In the cecum, adjacent to the appendiceal orifice, there was an area of some scarring and some surrounding tissue that was probably normal mucosa. However, I did remove the somewhat raised areas next to the scarring to be sure this was not residual polyp tissue, using a cold biopsy forceps. The remainder of the cecum appeared completely normal. The scope was then slowly withdrawn, assessing all mucosal surfaces carefully. Preparation was excellent. At 20 cm, there was an approximately 6 mm polyp, which was removed by cold snare polypectomy and recovered by suction. The polypectomy site appeared to be clean, without any sign of residual polyp nor significant bleeding. I did not visualize any other polyps, colitis, or angiodysplasia. There was a mild amount of sigmoid diverticulosis. In the rectum, scope was retroflexed, visualizing internal hemorrhoids, but no other pathology. The rectal mucosa appeared normal. The scope was straightened and withdrawn from the patient. He tolerated procedure well and was returned to the recovery area in stable condition. IMPRESSION: 1. Colon polyps. 2. Diverticulosis. 3. Internal hemorrhoids. PLAN: The results of the biopsy will be checked. I would recommend a repeat colonoscopy in 3 years for further screening and surveillance. He was advised to resume his aspirin in 48 hours. He will, otherwise, see me on a p.r.n. basis. He did receive a dose of gentamicin and vancomycin intravenously prior to the procedure as recommended by his cell room supervisor for prophylaxis. I do not think he will need any antibiotics after the procedure. MD JELLY Harvey/RERE / [id number]
== END 2024-01-05 10:15 | disposition home or self-care (01) ==
PROVIDERS: PCP Internal Medicine; Visit Provider Internal Medicine
PROC: 0DJD8ZZ Inspection of Lower Intestinal Tract, Via Natural or Artificial Opening Endoscopic (ICD-10-PCS; CPT 45378; principal; 2024-01-05 09:40)
DX: Z12.11 Encounter for screening for malignant neoplasm of colon (principal); Z86.010 Personal history of colon polyps; D12.5 Benign neoplasm of sigmoid colon; K63.5 Polyp of colon; K57.30 Diverticulosis of large intestine without perforation or abscess without bleeding; K64.8 Other hemorrhoids; Z79.82 Long term (current) use of aspirin; Z87.891 Personal history of nicotine dependence
CPT/HCPCS: 45385; 45380; 88305; J1580; J2704; J3371